=== PATIENT | male | born 1995 | race Caucasian/White ===

== ENCOUNTER 2024-05-30 10:04 | Emergency (ER) | payer OTHER, MEDICAID ==
[~2024-05-30] VITALS: Ht 170.2 cm; Wt 66.0 kg
[2024-05-30 10:19] VITALS: BP 136/83; PULSE 104; RESP 18; O2SAT 100
[2024-05-30 10:59] VITALS: TEMP 98.2
[2024-05-30] MEDS: ACETAMINOPHEN 325MG TABLET PO ONE (10:59)
[2024-05-30] MEDS ORDERED: CEPH500C2 MT (11:10)
== END 2024-05-30 12:06 | disposition home or self-care (01) ==
LOC: ER 10:12
DX: L03.116 Cellulitis of left lower limb (principal); Z98.890 Other specified postprocedural states
CPT/HCPCS: 73600; 73620; 99284

== ENCOUNTER 2024-05-30 21:39 | Emergency (ER) | payer MEDICAID, OTHER ==
[~2024-05-30] VITALS: Ht 167.6 cm; Wt 57.0 kg
[~2024-05-30 21:39] MED LIST: CEPH500C2 MT
[2024-05-30 22:05] VITALS: O2SAT 99
[2024-05-30] MEDS ORDERED: KETOROLAC 30MG/ML VIAL IM ONE (22:30)
[2024-05-30] MEDS: KETOROLAC 30MG/ML VIAL IM NR (23:44)
[2024-05-31 00:09] VITALS: BP 121/70; PULSE 89; RESP 18; TEMP 98.4
== END 2024-05-31 00:11 | disposition home or self-care (01) ==
LOC: ER 21:39
DX: L03.116 Cellulitis of left lower limb (principal); M79.672 Pain in left foot
CPT/HCPCS: 99283; 96372; J1885